=== PATIENT | male | born 1990 | race Caucasian/White ===

== ENCOUNTER → 2018-07-12 | Outpatient (CLI) | payer BC, OTHER ==
--- NOTE | 2018-07-12 18:07 | Diagnostic Imaging Report ---
INDICATION: Testicular lump and tenderness. FINDINGS: Right testicle measures 5.0 x 2.4 x 2.9 cm and the left testicle measures 4.5 x 2.5 x 3.0 cm. Both testes demonstrate homogeneous echotexture. No discrete testicular mass is seen. There is blood flow to both testes. The left epididymis does appear to be somewhat enlarged and shows some hypervascularity, suggestive of epididymitis. Trace left hydrocele is seen. IMPRESSION: 1. No evidence of testicular mass or vascular compromise. 2. Findings suggestive of left epididymitis. Dictated by: Dictated on workstation # [id number]
== END ==
LOC: RAD 14:09
PROVIDERS: ATTEND Nurse Practitioner Family
DX: N50.89 Other specified disorders of the male genital organs (principal)
CPT/HCPCS: 76870

== ENCOUNTER → 2020-06-03 | Outpatient (CLI) | payer BC ==
--- NOTE | 2020-06-03 13:20 | Diagnostic Imaging Report ---
PROCEDURE: US Scrotum. TECHNIQUE: Multiple real-time grayscale images were obtained over the scrotum in various projections bilaterally. INDICATION: Left testicular pain and lump. FINDINGS: Right testicle measures 5.0 x 2.4 x 2.9 cm and the left testicle measures 4.8 x 2.6 x 3.0 cm. Both testes demonstrate homogeneous echotexture. No discrete testicular mass is identified. There is blood flow to both testes. Right epididymis is unremarkable. Left epididymis is enlarged and shows increased vascularity, consistent with epididymitis. Small left hydrocele is present as well. No varicocele is detected. IMPRESSION: 1. No evidence of testicular mass or vascular compromise. 2. Findings suggestive of left epididymitis. Dictated by: Dictated on workstation # [id number]
== END ==
LOC: RAD 11:49
PROVIDERS: ATTEND Nurse Practitioner Family
DX: N50.9 Disorder of male genital organs, unspecified (principal)
CPT/HCPCS: 76870

== ENCOUNTER → 2020-06-12 | Outpatient (CLI) | payer BC | LOC: LABNPT 06:55 | PROVIDERS: ATTEND Family Medicine | DX: Z11.59 Encounter for screening for other viral diseases (principal); R05 Cough; R06.02 Shortness of breath; Z53.9 Procedure and treatment not carried out, unspecified reason ==

== ENCOUNTER 2020-09-19 13:29 | Outpatient (CLI) | payer BC ==
[~2020-09-19] VITALS: Ht 188 cm; Wt 109.3 kg
[2020-09-19 13:40] VITALS: BP 135/86
[2020-09-19 13:59] LABS: BASOPHILS % (AUTO) 1 % (0-10); EOSINOPHILS # (AUTO) 0.1 10^3/uL (0.0-0.3); EOSINOPHILS % (AUTO) 2 % (0-10); HEMATOCRIT 44 % (40-54); HEMOGLOBIN 15.7 g/dL (13.3-17.7); LYMPHOCYTES # (AUTO) 1.5 10^3/uL (1.0-4.0); LYMPHOCYTES % (AUTO) 27 % (12-44); MEAN CORPUSCULAR HEMOGLOBIN 31 pg (25-34); MEAN CORPUSCULAR HGB CONC 35 g/dL (32-36); MEAN CORPUSCULAR VOLUME 89 fL (80-99); MEAN PLATELET VOLUME 9.5 fL (9.0-12.2); MONOCYTES # (AUTO) 0.5 10^3/uL (0.0-1.0); MONOCYTES % (AUTO) 8 % (0-12); NEUTROPHILS # (AUTO) 3.5 10^3/uL (1.8-7.8); NEUTROPHILS % (AUTO) 63 % (42-75); PLATELET COUNT 255 10^3/uL (130-400); WHITE BLOOD COUNT 5.5 10^3/uL (4.3-11.0)
[2020-09-19 14:12] LABS: ALBUMIN 4.4 GM/DL (3.2-4.5); CHLORIDE 107 MMOL/L (98-107); POTASSIUM 3.9 MMOL/L (3.6-5.0); SODIUM 138 MMOL/L (135-145)
[2020-09-19 14:13] LABS: CALCIUM 8.9 MG/DL (8.5-10.1)
[2020-09-19 14:14] LABS: GLUCOSE 93 MG/DL (70-105); TOTAL PROTEIN 7.3 GM/DL (6.4-8.2)
[2020-09-19 14:15] LABS: CARBON DIOXIDE 25 MMOL/L (21-32)
[2020-09-19 14:16] LABS: BILIRUBIN,TOTAL 0.7 MG/DL (0.1-1.0)
[2020-09-19 14:18] LABS: ALKALINE PHOSPHATASE 61 U/L (40-136); CREATININE SERUM 0.91 MG/DL (0.60-1.30); GFR ESTIMATED > 60
[2020-09-19 14:19] LABS: BUN/CREATININE RATIO 15
[2020-09-19 14:21] LABS: ALANINE AMINOTRANSFERASE 18 U/L (0-55)
== END 2020-09-19 14:10 | disposition home or self-care (01) ==
LOC: PREOP 13:29
PROVIDERS: ATTEND Urology
DX: Z01.812 Encounter for preprocedural laboratory examination (principal); N50.9 Disorder of male genital organs, unspecified
CPT/HCPCS: 36415; 80053; 82105; 83615; 84702; 85025; 87081

== ENCOUNTER 2020-09-24 06:06 | Day surgery (SDC) | payer BC ==
[2020-09-24] VITALS (10 sets, daily range): BP systolic 108–132; BP diastolic 72–105
[~2020-09-24] VITALS: Ht 188 cm; Wt 109.3 kg
[2020-09-24] MEDS: LACTATED RINGERS 1,000 ML IV PRN ×2 (06:27→07:54)
[2020-09-24] MEDS ORDERED: ceFAZolin INJECTION 1,000 MG in WATER (STERILE) FOR INJECTION 10 ML IV ONE (06:30)
[2020-09-24] MEDS ORDERED: proPOfol 200 MG/20 ML (DIPRIVAN) VIAL IV ONE (06:48)
[2020-09-24] MEDS ORDERED: fentaNYL INJ 100 MCG/2 ML AMP ONE (06:48)
[2020-09-24] MEDS ORDERED: ONDANSETRON 4 MG/2 ML (SDV) Z0FRAN ONE (06:48)
[2020-09-24] MEDS ORDERED: LIDOCAINE PF 2% 5 ML (XYLOCAINE) VIAL ONE (06:48)
[2020-09-24] MEDS ORDERED: SEVOFLURANE (ULTANE) 15 ML INHAL SOLN ONE ×5 (06:48→08:35)
[2020-09-24] MEDS ORDERED: MIDAZOLAM 2 MG/2 ML (VERSED) VIAL ONE (06:48)
--- NOTE | 2020-09-24 07:11 | Progress Note-Pre Operative ---
Pre-Operative Progress Note H&P Reviewed The H&P was reviewed, patient examined and no changes noted. Date Seen by Provider: Sep 24, 2020 Time Seen by Provider: 07:10 Date H&P Reviewed: Sep 24, 2020 Time H&P Reviewed: 07:10 Pre-Operative Diagnosis: LT EPIDIDYMAL MASS, POSSIBLE CA PARKER VALADEZ MD Sep 24, 2020 07:11
--- NOTE | 2020-09-24 07:19 | Progress Note-Post Operative ---
Post-Operative Progess Note Surgeon (s)/Lumber Grader (s) Surgeon PARKER VALADEZ MD Lumber Grader: FATEMEH WANG D.O Pre-Operative Diagnosis LT EPIDIDYMAL MASS, POSSIBLE CA Post-Operative Diagnosis SAME Procedure & Operative Findings Date of Procedure 09/24/20 Procedure Performed/Findings LT INGUINAL EXPLORATION, LT EPIDIDYMECTOMY WITH FROZEN SECTION AND RADICAL ORCHIECTOMY Anesthesia Type GENERAL Estimated Blood Loss Estimated blood loss (mL): LESS THAN 50CC Specimens/Packing Specimens Removed LT SPERMATIC CORD, EPIDIDYMIS, AND TESTIS Packing: NONE PARKER VALADEZ MD Sep 24, 2020 07:19
--- NOTE | 2020-09-24 07:21 | Discharge Inst-Urology ---
Discharge Inst-Urology Reconcile Patient Problems Problems Reviewed?: Yes Final Diagnosis LT EPIDIDYMAL MASS Patient Instructions/Follow Up Plan/Assessment/Instructions Please make appointment to been seen in office in 2 weeks. Rest till then Showers, no bath Keep bowels soft and moving Ice to Lt groin and scrotum Increase oral fluids for 48 hours and then as needed. Diet as tolerated. If questions or concerns contact your physician Or seek help at emergency department. PARKER VALADEZ MD Sep 24, 2020 07:21
[2020-09-24] MEDS ORDERED: HYDROmorphone 2 MG/ML VIAL (DILAUDID) ONE (07:38)
[2020-09-24] MEDS ORDERED: HYDROmorphone 2 MG/ML VIAL (DILAUDID) IV ONE (09:00)
[2020-09-24] MEDS ORDERED: morphine INJ 10 MG/ML 1ML (SYR OR VIAL) IVP ONE (09:00)
[2020-09-24] MEDS ORDERED: ONDANSETRON 4 MG/2 ML (SDV) Z0FRAN IVP PRN (09:00)
[2020-09-24] MEDS ORDERED: CEPH500T PO (09:27)
[2020-09-24] MEDS ORDERED: ACHD5005 PO (09:27)
--- NOTE | 2020-09-24 11:12 | Anesthesia-General Post-Op ---
General Patient Condition Mental Status/LOC: Same as Preop Cardiovascular: Satisfactory Nausea/Vomiting: Absent Respiratory: Satisfactory Pain: Controlled Complications: Absent Post Op Complications Complications None Follow Up Care/Instructions Patient Instructions None needed. Anesthesia/Patient Condition Patient Condition Patient is doing well, no complaints, stable vital signs, no apparent adverse anesthesia problems. AYE BELLA DO Sep 24, 2020 11:12
--- NOTE | 2020-09-24 11:33 | OPERATIVE REPORT ---
DATE OF SERVICE: 09/24/2020 PREOPERATIVE DIAGNOSIS: Left epididymal mass, possible cancer. POSTOPERATIVE DIAGNOSIS: Left epididymal mass, possible cancer. OPERATIONS PERFORMED: Left inguinal exploration, left epididymectomy and radical orchiectomy. SURGEON: Holden Valadez MD. TIER OVER: Andre Marin DO. ANESTHESIA: General. COMPLICATIONS: None. DESCRIPTION OF PROCEDURE: Under satisfactory general anesthesia, the patient in supine position, abdomen, genitalia and thigh were prepped and draped in the usual sterile fashion. A left inguinal incision was made along the previous scar and carried through the skin, Solo's fascia and external oblique aponeurosis. There were extensive adhesions from previous surgery, but we were able to dissect the spermatic cord high into the internal inguinal ring. I put a Gage drain around it in order to kind of occlude the venous return. I went ahead and with sharp dissection because of the scar tissue, I was able to deliver the testicle and epididymis into the surgical wound, noted the hard mass of the head and body of the epididymis very adherent to the testicle. I went ahead and sharply dissected the whole epididymis and the head looked like either the head of the epididymis was biting severely against the testicle or even infiltrating it, so I went ahead and resected the edge of the testicle that is in question. I sent the epididymis to pathology for frozen section. I went ahead and closed the tunica albuginea with a running 3-0 chromic catgut and hemostasis was complete. We waited for the pathology report. highly suspect a cancerous process with possible cancer cells in the tissue of the testicle that was resected with the epididymis, so we proceeded with the radical orchiectomy. I went ahead and the cord at the internal ring and tied it in two places with 0 chromic catgut. Then, severed the gubernaculum attachment and tied it with 0 chromic catgut. The specimen was sent for final pathology. Hemostasis was complete. Closure was performed in layer, the external oblique with running 2-0 Vicryl, the Solo's fascia with interrupted 3-0 Vicryl and the skin with a running subcuticular 4-0 Vicryl. Glue was applied. Estimated blood loss was less than 50 mL, none of which was replaced. Needle, sponge, and instrument counts were correct x2. Dressing was applied. The patient tolerated the procedure and anesthesia well and was sent to recovery room in a stable condition. Just to mention that his preoperative tumor markers, namely alpha fetoprotein and beta hCG and LAD were normal. PLAN: We will await the final report and if it was indeed a cancer, depending on the type, we will also order a CT chest, abdomen and pelvis and a bone scan for staging. This was fully explained to the mother postoperatively. Job ID: [id number] DocumentID: [id number] Dictated Date: 09/24/2020 09:04:57 Stunt Woman Date: 09/24/2020 11:32:44 Dictated By: HOLDEN VALADEZ MD
== END 2020-09-24 11:20 | disposition home or self-care (01) ==
LOC: SDC 06:06
PROVIDERS: ATTEND Urology
DX: C85.19 Unspecified B-cell lymphoma, extranodal and solid organ sites (principal)

== ENCOUNTER → 2020-10-13 | Outpatient (CLI) | payer BC ==
[~2020-10-13] MED LIST: ACHD5005 PO; CATHETER FLUSH 10 ML SYR IV PRN; CEPH500T PO; HOLD METFORMIN - RECEIVED CONTRAST 20 ML VIAL IV SCH; IOHEXOL 350 MG/ML 100 ML (OMNIPAQUE 350) VIAL IV ONE; NS 100 ML (IVPB) BAG IV ONE
--- NOTE | 2020-10-13 13:46 | Diagnostic Imaging Report ---
PROCEDURE: CT chest, abdomen, and pelvis with contrast. TECHNIQUE: Multiple contiguous axial images were obtained through the chest, abdomen, and pelvis after the administration of intravenous contrast. Auto Exposure Controls were utilized during the CT exam to meet ALARA standards for radiation dose reduction. INDICATION: B-cell lymphoma. No prior studies are available for comparison. CT CHEST: No axillary lymphadenopathy is identified. There appears to be some residual thymic tissue in anterior mediastinum. No definite mediastinal or hilar lymphadenopathy is identified. No pericardial or pleural fluid is identified. Lungs are clear. No infiltrates are seen. There is no nodule or mass. IMPRESSION: Unremarkable CT of the chest. No thoracic lymphadenopathy is detected. CT abdomen and pelvis: Tiny low-density left lobe of liver is noted measuring 6 mm. This is too small to characterize. No other liver lesions are seen. Gallbladder is unremarkable. The pancreas and spleen are unremarkable. No adrenal mass is detected. Kidneys are unremarkable. Aorta is nonaneurysmal. No central retroperitoneal or mesenteric lymphadenopathy is identified. Small and large bowel loops are normal caliber. There is no ascites. Bladder and prostate are unremarkable. No definite pelvic lymphadenopathy is identified. Bony structures are unremarkable. IMPRESSION: 1. No evidence of abdominal or pelvic lymphadenopathy. No acute feature is detected. Dictated by: Dictated on workstation # [id number]
== END ==
LOC: RAD 08:45
PROVIDERS: ATTEND Urology
DX: C83.30 Diffuse large B-cell lymphoma, unspecified site (principal)
CPT/HCPCS: 71260; 74177

== ENCOUNTER → 2020-10-21 | Outpatient (CLI) | payer BC ==
[~2020-10-21] MED LIST changes: -CATHETER FLUSH 10 ML SYR IV PRN; -HOLD METFORMIN - RECEIVED CONTRAST 20 ML VIAL IV SCH; -IOHEXOL 350 MG/ML 100 ML (OMNIPAQUE 350) VIAL IV ONE; -NS 100 ML (IVPB) BAG IV ONE
--- NOTE | 2020-10-21 17:00 | Diagnostic Imaging Report ---
INDICATION: B-cell lymphoma. Orchiectomy. 25.3 mCi tech 99 MDP was given. Whole body imaging was performed for 2-1/2 [address]injection. Comparison with CT chest, abdomen and pelvis of 10/13/2020. FINDINGS: There is good uptake throughout the skeletal system. There are no focal abnormal areas of uptake demonstrated to suggest metastatic disease. IMPRESSION: Normal whole body bone scan. Dictated by: Dictated on workstation # [id number]
== END ==
LOC: CARD 12:00
PROVIDERS: ATTEND Urology
DX: C85.10 Unspecified B-cell lymphoma, unspecified site (principal); Z90.79 Acquired absence of other genital organ(s)
CPT/HCPCS: 78306; A9503

== ENCOUNTER 2020-10-29 12:49 | Outpatient (CLI) | payer BC ==
[~2020-10-29] VITALS: Ht 188 cm; Wt 108.6 kg
== END 2020-10-29 15:06 | disposition home or self-care (01) ==
LOC: PREOP 12:49
PROVIDERS: ATTEND Surgery
DX: Z01.818 Encounter for other preprocedural examination (principal)

== ENCOUNTER 2020-10-30 09:53 | Day surgery (SDC) | payer BC ==
[~2020-10-30] VITALS: Ht 188 cm; Wt 108.6 kg
[2020-10-30] VITALS (7 sets, daily range): BP systolic 110–124; BP diastolic 61–92
[2020-10-30] MEDS ORDERED: ceFAZolin 2 GM IV Premixed 50 ML IV ONE (10:15)
[2020-10-30] MEDS ORDERED: LIDOCAINE/EPI 1%-1:100,000 (XYLOCAINE) 20ML ONE (10:50)
[2020-10-30] MEDS ORDERED: HEParin (CENTRAL IV FLUSH) 500 UNIT/5 ML SYR ONE (10:50)
[2020-10-30] MEDS ORDERED: 0.9% SODIUM CHLORIDE PF INJ 20 ML VIAL ONE (10:50)
[2020-10-30] MEDS ORDERED: PROPOFOL INJECTION 50 ML IV ONE (10:56)
[2020-10-30] MEDS ORDERED: MIDAZOLAM 2 MG/2 ML (VERSED) VIAL ONE (10:56)
[2020-10-30] MEDS ORDERED: fentaNYL INJ 100 MCG/2 ML AMP ONE (10:56)
--- NOTE | 2020-10-30 11:36 | Progress Note-Pre Operative ---
Pre-Operative Progress Note H&P Reviewed The H&P was reviewed, patient examined and no changes noted. Date Seen by Provider: October 30, 2020 Time Seen by Provider: 11:36 Date H&P Reviewed: October 30, 2020 Time H&P Reviewed: 11:36 Pre-Operative Diagnosis: non-hodgkins lymphoma FATEMEH WANG DO October 30, 2020 11:36
--- NOTE | 2020-10-30 12:38 | Progress Note-Post Operative ---
Post-Operative Progess Note Surgeon (s)/Application Support Developer (s) Surgeon FATEMEH WANG DO Application Support Developer: na Pre-Operative Diagnosis non-hodgkins lymphoma Post-Operative Diagnosis same Procedure & Operative Findings Date of Procedure 10/30/20 Procedure Performed/Findings PROCEDURE: Right internal jugular port placement using ultrasound guidance. COMPLICATIONS: None. INDICATIONS: The patient is a 30 year old male needing port. Patient understands the risks and benefits of port placement and wished to proceed with the procedure. Consent was signed on the chart. PROCEDURE: The patient was taken to the operating suite, was prepped and draped in the sterile fashion. A surgical pause was performed. Ultrasound was used to locate the internal jugular vein. Once located anesthetic was infiltrated above it. Using micro-access kit, the right internal vein was accessed. Dark nonpulsatile blood was withdrawn. The wire was inserted. Fluoroscopy assured proper placement. The needle was removed. The micro-access dilator was advanced over the wire and the wire was removed. The regular wire was inserted and fluoroscopy assured proper placement. The wire was then secured. Local anesthetic was used to anesthetize from the neck for tunneling down to the right chest and for pocket creation. A 15 blade scalpel was used to make an incision over the right chest. Cautery was used to dissect down to the pectoral fascia. A pocket was created with blunt dissection. The dilator sheath was then advanced over the wire under fluoroscopy and the dilator and wire were removed. The Groshong catheter was inserted through the sheath and the sheath was then removed. The Groshong wire was removed. The catheter was then tunneled to the right chest pocket. Fluoroscopy was used to cut to length and this was then attached to the port which was then placed within the pocket. The port was then accessed without difficulty. It was then flushed with saline and then heparin. The subcutaneous tissues were then reapproximated using 3-0 Vicryl. The areas were then washed and dried. Skin Affix was placed over incision. The insertion point of the neck Skin Affix was placed over the incision. The patient tolerated the procedure well without complication and was taken to recovery room in stable condition. Chest x-ray is pending. Anesthesia Type mac c local Estimated Blood Loss Estimated blood loss (mL): min Specimens/Packing Specimens Removed FATEMEH Teixeira DO October 30, 2020 12:38
--- NOTE | 2020-10-30 12:40 | Anesthesia-General Post-Op ---
MAC Patient Condition Mental Status/LOC: Same as Preop Cardiovascular: Satisfactory Nausea/Vomiting: Absent Respiratory: Satisfactory Pain: Controlled Complications: Absent Post Op Complications Complications None Follow Up Care/Instructions Patient Instructions None needed. Anesthesiology Discharge Order Discharge Order Patient is doing well, no complaints, stable vital signs, no apparent adverse anesthesia problems. No complications reported per nursing. LEXI NGUYỄN CRNA October 30, 2020 12:40
--- NOTE | 2020-10-30 12:40 | Discharge Inst-Simple/Standard ---
Discharge Inst-Standard Patient Instructions/Follow Up Plan of Care/Instructions/FU: 2 weeks Tania Activity as Tolerated: No Discharge Diet: Regular Diet Other Inst to Patient Follow up Appt: Make appointment for 2 week. Instructions: No lifting greater than 10 pounds. No strenuous activity. May shower in 24 hours, no tub bath or soaking. Use incentive spirometer at home as directed. No Smoking Skin/Wound Care: You have special glue over your incision that will fall off on it's own. Ice pack on 15 min and off 30 min, repeat to decrease swelling and discomfort. Symptoms to Report: Appetite Changes, Extremity Discoloration, Numbness/Tingling, Swelling Increased, Bleeding Excessive, Eyesight Changes, Pain Increased, Urine Color Change, Constipation(Persistent), Fever over 101 degree F, Pain/Pressure in chest, Urinating Difficulty, Cough Up/Vomit Blood, Heart Beat Irreg/Pounding, Pain/Pressure in jaw, Vaginal Bleeding Increase, Cramps in feet or legs, Lightheadedness, Pain/Pressure in shoulder, Diarrhea(Persistent), Memory Changes Suddenly, Questions/Concerns, Weight gain consecutive days, Dizziness/Fainting, Nausea/Vomiting, Shortness of Breath, Weight gain over 2 pounds If questions or concerns contact your physician Or seek help at emergency department. FATEMEH WANG DO October 30, 2020 12:40
[2020-10-30] MEDS ORDERED: morphine INJ 10 MG/ML 1ML (SYR OR VIAL) IVP ONE (12:45)
[2020-10-30] MEDS ORDERED: MEPERIDINE (DEMEROL) INJ 50 MG/ML IVP ONE (12:45)
[2020-10-30] MEDS ORDERED: ONDANSETRON 4 MG/2 ML (SDV) Z0FRAN IVP PRN (12:45)
--- NOTE | 2020-10-30 13:06 | Diagnostic Imaging Report ---
INDICATION: Central line placement IMPRESSION: 30 seconds of fluoroscopy and AP digital images were used in surgery by Dr. Marin during right IJ Port-A-Cath placement. Dictated by: Dictated on workstation # [id number]
--- NOTE | 2020-10-30 13:19 | Diagnostic Imaging Report ---
INDICATION: Central line placement. EXAMINATION: Portable chest at 12:50 p.m. FINDINGS: Right IJ Port-A-Cath tip projects over the SVC. Heart size and pulmonary vascularity are normal. Lungs are clear. There are no effusions or pneumothoraces. IMPRESSION: No acute abnormalities in the chest. Dictated by: Dictated on workstation # [id number]
== END 2020-10-30 13:40 | disposition home or self-care (01) ==
LOC: SDC 09:53
PROVIDERS: ATTEND Surgery
DX: C83.30 Diffuse large B-cell lymphoma, unspecified site (principal); Z87.891 Personal history of nicotine dependence; Z79.899 Other long term (current) drug therapy; Z90.79 Acquired absence of other genital organ(s); Z82.49 Family history of ischemic heart disease and other diseases of the circulatory system; Z80.9 Family history of malignant neoplasm, unspecified
CPT/HCPCS: 71045; 76000; 87081

== ENCOUNTER → 2020-11-04 | Outpatient (CLI) | payer BC ==
--- NOTE | 2020-11-04 14:46 | Diagnostic Imaging Report ---
INDICATION: Diffuse large B-cell lymphoma. Study is performed for initial staging. Serum blood glucose level at the time of injection was 80 mg/dL. Patient was administered 15.4 mCi F-18 FDG intravenously in the left antecubital location and PET imaging was performed from the top of the skull to mid thighs. Noncontrast CT was also performed for attenuation correction and anatomic correlation. No prior PET/CT studies are available for comparison. Comparison is made with conventional CT chest, abdomen and pelvis study from 10/13/2020. There is symmetric activity throughout the brain. Physiologic activity in the oropharynx is identified. There is a hypermetabolic mass in the region of the lower pole left lobe of the thyroid with an SUV max of 18. Dedicated thyroid ultrasound is recommended. No definite mediastinal or hilar hypermetabolism is identified. No pulmonary parenchymal hypermetabolism is identified. There is physiologic activity throughout the gastrointestinal and genitourinary tracts of abdomen and pelvis. There is some uptake in the region of the left inguinal canal which could be postsurgical. SUV values are approximately 4.8. IMPRESSION: 1. Hypermetabolic mass in the left thyroid. Dedicated thyroid ultrasound is recommended for further evaluation. 2. Probable postsurgical changes in the left groin and inguinal canal. No other significant abnormality is detected. Dictated by: Dictated on workstation # [id number]
== END ==
LOC: CARD 09:51
PROVIDERS: ATTEND Internal Medicine Hematology & Oncology
DX: Z51.11 Encounter for antineoplastic chemotherapy (principal); C83.30 Diffuse large B-cell lymphoma, unspecified site; C85.90 Non-Hodgkin lymphoma, unspecified, unspecified site; E07.89 Other specified disorders of thyroid
CPT/HCPCS: 78815; 93306; A9552

== ENCOUNTER → 2020-11-07 | Outpatient (CLI) | payer BC ==
--- NOTE | 2020-11-07 13:32 | Diagnostic Imaging Report ---
PROCEDURE: US Thyroid. TECHNIQUE: Multiple real-time grayscale images were obtained of the thyroid in various projections. INDICATION: Lymphoma. Patient had abnormal PET/CT study. COMPARISON: Correlation is made with PET/CT study from 11/04/2020. FINDINGS: Right lobe of thyroid measures 4.2 x 1.4 x 1.7 cm and left lobe measures 4.3 x 1.5 x 1.7 cm. Isthmus is 3 mm in thickness. Left lobe of thyroid does contain a circumscribed isoechoic mass mid to lower pole left lobe measuring 1.3 x 1.2 x 1.1 cm. No microcalcifications are seen. No other masses are identified. IMPRESSION: Solid left lobe thyroid nodule, likely accounting for the PET abnormality. Close interval follow-up with repeat ultrasound in six months recommended to show continued stability. Dictated by: Dictated on workstation # [id number]
== END ==
LOC: RAD 12:17
PROVIDERS: ATTEND Nurse Practitioner Adult Health
DX: C73 Malignant neoplasm of thyroid gland (principal); E04.1 Nontoxic single thyroid nodule
CPT/HCPCS: 76536

== ENCOUNTER → 2021-01-26 | Outpatient (RCR) | payer BC ==
[2020-10-28 09:42] LABS: BASOPHILS % (AUTO) 0 % (0-10); EOSINOPHILS # (AUTO) 0.2 10^3/uL (0.0-0.3); EOSINOPHILS % (AUTO) 3 % (0-10); HEMATOCRIT 45 % (40-54); HEMOGLOBIN 15.5 g/dL (13.3-17.7); LYMPHOCYTES # (AUTO) 1.4 10^3/uL (1.0-4.0); LYMPHOCYTES % (AUTO) 28 % (12-44); MEAN CORPUSCULAR HEMOGLOBIN 31 pg (25-34); MEAN CORPUSCULAR HGB CONC 35 g/dL (32-36); MEAN CORPUSCULAR VOLUME 91 fL (80-99); MEAN PLATELET VOLUME 9.4 fL (9.0-12.2); MONOCYTES # (AUTO) 0.6 10^3/uL (0.0-1.0); MONOCYTES % (AUTO) 11 % (0-12); NEUTROPHILS # (AUTO) 2.8 10^3/uL (1.8-7.8); NEUTROPHILS % (AUTO) 57 % (42-75); PLATELET COUNT 230 10^3/uL (130-400); WHITE BLOOD COUNT 4.9 10^3/uL (4.3-11.0)
[2020-10-28 10:15] LABS: ALANINE AMINOTRANSFERASE 18 U/L (0-55); ALBUMIN 4.2 GM/DL (3.2-4.5); ALKALINE PHOSPHATASE 71 U/L (40-136); BUN/CREATININE RATIO 14; CALCIUM 8.9 MG/DL (8.5-10.1); CARBON DIOXIDE 30 MMOL/L (21-32); CHLORIDE 106 MMOL/L (98-107); CREATININE SERUM 0.86 MG/DL (0.60-1.30); GFR ESTIMATED > 60; GLUCOSE 78 MG/DL (70-105); POTASSIUM 3.9 MMOL/L (3.6-5.0); SODIUM 140 MMOL/L (135-145)
[2020-10-29 13:31] LABS: HEPATITIS C ANTIBODY C Non-Reactive (Non-Reactive)
--- NOTE | 2020-11-12 11:00 | Anesthesia-Procedure Note ---
Procedures/Interventions Procedure Start/Stop/Diagnosis Date of Procedure: November 12, 2020 Start Time: 10:25 Referring Physician: Dr Morfin Preprocedural Diagnosis: Nonhodgkin Lymphoma Brief History Called to cancer center for a lumbar puncture for intrathecal methotrexate Dx: nonhodkins lymphoma. Stop Time: 10:40 Postprocedural Diagnosis: Same Lumbar Puncture Discussed Risk,Benefits: Yes Patient Consents: Yes Position: L3-4, Sitting Sterile Technique: Yes (ChloraPrep) Opening Pressure: N/A Fluid Color: Clear Spinal Needle Used: 22g Galeano 3 1/2 inch Procedure Notes D/W patient risks of lumbar puncture, including most commonly bleeding, infection and PDPH. He understood the risks and consent was signed. Plt count was checked and within normal limits. + CSF on first pass. Neg heme /paresthesias. Approximately 8 ml of CSF was sent to lab per Dr Morfin's orders. Dr Morfin injected the methotrexate intrathecally and needle was withdrawn. Sterile bandage applied. Pt tolerated the procedure well. We discussed the symptoms of a PDPH and increased fluids/caffeine for symptomatic treatment. He will call with any questions/concerns. The plan is for weekly treatments for the next 5 weeks. AYE BELLA DO November 12, 2020 11:00
[2020-11-12 11:24] LABS: CSF GLUCOSE 59 MG/DL (50-80)
[2020-11-12 11:30] LABS: CSF TOTAL PROTEIN 37 MG/DL (15-40)
[2020-11-12 12:45] LABS: APPEARANCE,CSF CLEAR; COLOR,CSF COLORLESS; RED BLOOD CELL,CSF 1 CELLS (0-0); WHITE BLOOD CELL,CSF 1 CELLS (0-5)
[2020-11-12 12:46] LABS: CSF TUBE NUMBER 2
[2020-11-19 10:25] LABS: BASOPHILS % (AUTO) 1 % (0-10); EOSINOPHILS # (AUTO) 0.2 10^3/uL (0.0-0.3); EOSINOPHILS % (AUTO) 3 % (0-10); HEMATOCRIT 42 % (40-54); HEMOGLOBIN 14.8 g/dL (13.3-17.7); LYMPHOCYTES # (AUTO) 0.9 10^3/uL (1.0-4.0); LYMPHOCYTES % (AUTO) 18 % (12-44); MEAN CORPUSCULAR HEMOGLOBIN 31 pg (25-34); MEAN CORPUSCULAR HGB CONC 36 g/dL (32-36); MEAN CORPUSCULAR VOLUME 88 fL (80-99); MEAN PLATELET VOLUME 9.2 fL (9.0-12.2); MONOCYTES # (AUTO) 0.1 10^3/uL (0.0-1.0); MONOCYTES % (AUTO) 3 % (0-12); NEUTROPHILS # (AUTO) 3.9 10^3/uL (1.8-7.8); NEUTROPHILS % (AUTO) 74 % (42-75); PLATELET COUNT 210 10^3/uL (130-400); WHITE BLOOD COUNT 5.2 10^3/uL (4.3-11.0)
[2020-11-19 10:43] LABS: BUN/CREATININE RATIO 16; CALCIUM 8.7 MG/DL (8.5-10.1); CARBON DIOXIDE 31 MMOL/L (21-32); CHLORIDE 103 MMOL/L (98-107); CREATININE SERUM 0.83 MG/DL (0.60-1.30); GFR ESTIMATED > 60; GLUCOSE 86 MG/DL (70-105); POTASSIUM 3.8 MMOL/L (3.6-5.0); SODIUM 139 MMOL/L (135-145)
--- NOTE | 2020-11-19 11:32 | Anesthesia-Procedure Note ---
Procedures/Interventions Procedure Start/Stop/Diagnosis Date of Procedure: November 19, 2020 Start Time: 11:00 Referring Physician: Dr Morfin Preprocedural Diagnosis: Diffuse Large B-Cell Lymphoma Brief History Called to cancer center for a lumbar puncture to administer intrathecal methotrexate. Pt had no complications with lumbar puncture and methotrexate last week. Questions answered and consent signed. + CSF after needle redirect times one. Symptoms of PDPH discussed with patient and he will call with any questions/concerns. Stop Time: 11:18 Postprocedural Diagnosis: Same Lumbar Puncture Discussed Risk,Benefits: Yes Patient Consents: Yes Position: Sitting Sterile Technique: Yes (ChloraPrep) Opening Pressure: N/A Fluid Color: Clear Spinal Needle Used: 22g RAZ Mobile 3 1/2 inch Procedure Notes No difficulty -- ~ 5 mL CSF remove per Dr Morfin's request and methotrexate injected by him with sterile technique. Sterile bandage applied after needle was withdrawn. Pt tolerated the procedure well. He did get light-headed at the start of the procedure. Withdrew needle and waited a few minutes. No trouble after that. AYE BELLA DO November 19, 2020 11:32
[2020-11-26 10:17] LABS: BASOPHILS % (AUTO) 2 % (0-10); EOSINOPHILS # (AUTO) 0.1 10^3/uL (0.0-0.3); EOSINOPHILS % (AUTO) 5 % (0-10); HEMATOCRIT 38 % (40-54); HEMOGLOBIN 13.8 g/dL (13.3-17.7); LYMPHOCYTES # (AUTO) 1.1 10^3/uL (1.0-4.0); LYMPHOCYTES % (AUTO) 47 % (12-44); MEAN CORPUSCULAR HEMOGLOBIN 32 pg (25-34); MEAN CORPUSCULAR HGB CONC 36 g/dL (32-36); MEAN CORPUSCULAR VOLUME 88 fL (80-99); MEAN PLATELET VOLUME 8.9 fL (9.0-12.2); MONOCYTES # (AUTO) 0.4 10^3/uL (0.0-1.0); MONOCYTES % (AUTO) 17 % (0-12); NEUTROPHILS # (AUTO) 0.7 10^3/uL (1.8-7.8); NEUTROPHILS % (AUTO) 29 % (42-75); PLATELET COUNT 161 10^3/uL (130-400); WHITE BLOOD COUNT 2.4 10^3/uL (4.3-11.0)
[2020-11-26 10:35] LABS: BUN/CREATININE RATIO 9; CARBON DIOXIDE 27 MMOL/L (21-32); CHLORIDE 106 MMOL/L (98-107); CREATININE SERUM 0.78 MG/DL (0.60-1.30); GFR ESTIMATED > 60; GLUCOSE 88 MG/DL (70-105); POTASSIUM 3.5 MMOL/L (3.6-5.0); SODIUM 141 MMOL/L (135-145)
--- NOTE | 2020-11-26 15:40 | Anesthesia-Procedure Note ---
Procedures/Interventions Procedure Start/Stop/Diagnosis Date of Procedure: Nov 26, 2020 Start Time: 11:30 Referring Physician: Dr Morfin Preprocedural Diagnosis: Diffuse Large B-Cell Lymphoma Brief History Called to cancer center for 3rd of 6 intrathecal methotrexate injection. Stop Time: 11:40 Postprocedural Diagnosis: Same Lumbar Puncture Discussed Risk,Benefits: Yes Patient Consents: Yes Position: Sitting Sterile Technique: Yes Opening Pressure: N/A Fluid Color: Clear Spinal Needle Used: 22g Galeano 3 1/2 inch Procedure Notes See above for block details. + CSF and ~5 mL of CSF withdrawn per Dr Morfin. Injection of intrathecal methotrexate by Dr. Morfin. Sterile bandage applied after the needle was withdrawn. Pt tolerated the procedure well. AYE BELLA DO Nov 26, 2020 15:40
[2020-12-03 09:40] LABS: BASOPHILS % (AUTO) 1 % (0-10); EOSINOPHILS % (AUTO) 1 % (0-10); HEMATOCRIT 42 % (40-54); HEMOGLOBIN 14.9 g/dL (13.3-17.7); LYMPHOCYTES # (AUTO) 1.2 10^3/uL (1.0-4.0); LYMPHOCYTES % (AUTO) 36 % (12-44); MEAN CORPUSCULAR HEMOGLOBIN 32 pg (25-34); MEAN CORPUSCULAR HGB CONC 36 g/dL (32-36); MEAN CORPUSCULAR VOLUME 89 fL (80-99); MEAN PLATELET VOLUME 8.9 fL (9.0-12.2); MONOCYTES # (AUTO) 0.5 10^3/uL (0.0-1.0); MONOCYTES % (AUTO) 13 % (0-12); NEUTROPHILS # (AUTO) 1.6 10^3/uL (1.8-7.8); NEUTROPHILS % (AUTO) 48 % (42-75); PLATELET COUNT 268 10^3/uL (130-400); WHITE BLOOD COUNT 3.4 10^3/uL (4.3-11.0)
[2020-12-03 10:09] LABS: ALANINE AMINOTRANSFERASE 88 U/L (0-55); ALBUMIN 4.1 GM/DL (3.2-4.5); ALKALINE PHOSPHATASE 60 U/L (40-136); BILIRUBIN,TOTAL 0.5 MG/DL (0.1-1.0); BUN/CREATININE RATIO 13; CALCIUM 9.3 MG/DL (8.5-10.1); CARBON DIOXIDE 26 MMOL/L (21-32); CHLORIDE 105 MMOL/L (98-107); CREATININE SERUM 0.79 MG/DL (0.60-1.30); GFR ESTIMATED > 60; GLUCOSE 89 MG/DL (70-105); POTASSIUM 3.7 MMOL/L (3.6-5.0); SODIUM 140 MMOL/L (135-145); TOTAL PROTEIN 6.6 GM/DL (6.4-8.2)
--- NOTE | 2020-12-03 13:38 | Anesthesia-Procedure Note ---
Procedures/Interventions Procedure Start/Stop/Diagnosis Date of Procedure: Dec 03, 2020 Start Time: 13:15 Referring Physician: Dr Morfin Preprocedural Diagnosis: Diffuse Large B-Cell Lymphoma Brief History Called to the cancer center for the 4th of 6 intrathecal methotrexate injections. Stop Time: 13:25 Postprocedural Diagnosis: Same Lumbar Puncture Discussed Risk,Benefits: Yes Patient Consents: Yes Position: L3-4, Sitting Sterile Technique: Yes (ChloraPrep) Opening Pressure: N/A Fluid Color: Clear Spinal Needle Used: 22g Galeano 3 1/2 inch Procedure Notes See above for lumbar puncture details. + CSF on first pass without difficulty. ~5 mL CSF removed and intrathecal methotrexate injected by Dr Morfin. Sterile bandage applied after needle removed. Pt tolerated the procedure well. Will plan for 5th injection next Tuesday. AYE BELLA DO Dec 03, 2020 13:38
[2020-12-10 10:03] LABS: BASOPHILS # (AUTO) 0.1 10^3/uL (0.0-0.1); BASOPHILS % (AUTO) 1 % (0-10); EOSINOPHILS # (AUTO) 0.1 10^3/uL (0.0-0.3); EOSINOPHILS % (AUTO) 2 % (0-10); HEMATOCRIT 43 % (40-54); HEMOGLOBIN 14.9 g/dL (13.3-17.7); LYMPHOCYTES # (AUTO) 1.3 10^3/uL (1.0-4.0); LYMPHOCYTES % (AUTO) 19 % (12-44); MEAN CORPUSCULAR HEMOGLOBIN 31 pg (25-34); MEAN CORPUSCULAR HGB CONC 35 g/dL (32-36); MEAN CORPUSCULAR VOLUME 90 fL (80-99); MEAN PLATELET VOLUME 9.3 fL (9.0-12.2); MONOCYTES # (AUTO) 0.5 10^3/uL (0.0-1.0); MONOCYTES % (AUTO) 8 % (0-12); NEUTROPHILS # (AUTO) 4.5 10^3/uL (1.8-7.8); NEUTROPHILS % (AUTO) 68 % (42-75); PLATELET COUNT 243 10^3/uL (130-400); WHITE BLOOD COUNT 6.7 10^3/uL (4.3-11.0)
[2020-12-10 10:26] LABS: BUN/CREATININE RATIO 16; CALCIUM 9.5 MG/DL (8.5-10.1); CARBON DIOXIDE 31 MMOL/L (21-32); CHLORIDE 100 MMOL/L (98-107); CREATININE SERUM 0.75 MG/DL (0.60-1.30); GFR ESTIMATED > 60; GLUCOSE 90 MG/DL (70-105); POTASSIUM 3.5 MMOL/L (3.6-5.0); SODIUM 139 MMOL/L (135-145)
--- NOTE | 2020-12-10 10:40 | Anesthesia-Procedure Note ---
Procedures/Interventions Procedure Start/Stop/Diagnosis Date of Procedure: Dec 10, 2020 Start Time: 10:15 Referring Physician: Dr Morfin Preprocedural Diagnosis: Diffuse Large B-Cell Lymphoma Brief History Called to the [facility] for a lumbar puncture for the 5th of 6 intracthecal methotrexate injections. Patient continues to do well after the injections, with the only complaint of a mild, non-specific headache which is relieved by OTC medications and avoiding strenuous activities. Stop Time: 10:25 Postprocedural Diagnosis: Same Lumbar Puncture Discussed Risk,Benefits: Yes Patient Consents: Yes Position: L3-4, Sitting Sterile Technique: Yes (ChloraPrep) Opening Pressure: N/A Fluid Color: Clear Spinal Needle Used: 22g SCIenergy 3 1/2 inch Procedure Notes See above for lumbar puncture details -- + CSF on 1st pass without difficulty. Neg heme/paresthesias. ~4 mL of CSF removed and intrathecal methotrexate was injected by Dr Morfin. Needle was removed and a sterile bandage was applied. Pt tolerated the procedure well. We will plan for the final injection next Tuesday. Patient was instructed to call with any questions/concerns. AYE BELLA DO Dec 10, 2020 10:40
[2020-12-17 10:08] LABS: BASOPHILS # (AUTO) 0.1 10^3/uL (0.0-0.1); BASOPHILS % (AUTO) 1 % (0-10); EOSINOPHILS # (AUTO) 0.2 10^3/uL (0.0-0.3); EOSINOPHILS % (AUTO) 3 % (0-10); HEMATOCRIT 42 % (40-54); HEMOGLOBIN 14.8 g/dL (13.3-17.7); LYMPHOCYTES # (AUTO) 1.5 10^3/uL (1.0-4.0); LYMPHOCYTES % (AUTO) 22 % (12-44); MEAN CORPUSCULAR HEMOGLOBIN 32 pg (25-34); MEAN CORPUSCULAR HGB CONC 35 g/dL (32-36); MEAN CORPUSCULAR VOLUME 90 fL (80-99); MEAN PLATELET VOLUME 9.1 fL (9.0-12.2); MONOCYTES # (AUTO) 0.9 10^3/uL (0.0-1.0); MONOCYTES % (AUTO) 13 % (0-12); NEUTROPHILS # (AUTO) 3.7 10^3/uL (1.8-7.8); NEUTROPHILS % (AUTO) 54 % (42-75); PLATELET COUNT 201 10^3/uL (130-400); WHITE BLOOD COUNT 6.9 10^3/uL (4.3-11.0)
[2020-12-17 10:28] LABS: BUN/CREATININE RATIO 15; CALCIUM 9.4 MG/DL (8.5-10.1); CARBON DIOXIDE 27 MMOL/L (21-32); CHLORIDE 103 MMOL/L (98-107); CREATININE SERUM 0.86 MG/DL (0.60-1.30); GFR ESTIMATED > 60; GLUCOSE 73 MG/DL (70-105); SODIUM 139 MMOL/L (135-145)
--- NOTE | 2020-12-17 13:16 | Anesthesia-Procedure Note ---
Procedures/Interventions Procedure Start/Stop/Diagnosis Date of Procedure: Dec 17, 2020 Start Time: 10:58 Referring Physician: Dr Morfin Preprocedural Diagnosis: Diffuse Large B-Cell Lymphoma Brief History Called to the cancer center for the final intrathecal methotrexate injection. Pt has done well with the previous injections, and has no questions regarding the procedure. Stop Time: 11:15 Postprocedural Diagnosis: Same Lumbar Puncture Discussed Risk,Benefits: Yes Patient Consents: Yes Position: L3-4, Sitting Sterile Technique: Yes (ChloraPrep) Opening Pressure: N/A Fluid Color: Clear Spinal Needle Used: 22g Blinkit 3 1/2 inch Procedure Notes See above for lumbar puncture details. Brief transient paresthesia on the left but went away immediately with needle withdrawal. + clear CSF without difficulty. ~4 mL of CSF withdrawn per Dr Morfin's request. Intrathecal Methotrexate injection done by Dr Morfin. Needle withdrawn and sterile bandage applied. Pt tolerated the procedure well. He said he will call with any questions or concerns. AYE BELLA DO Dec 17, 2020 13:16
[2020-12-24 10:04] LABS: BASOPHILS # (AUTO) 0.1 10^3/uL (0.0-0.1); BASOPHILS % (AUTO) 1 % (0-10); EOSINOPHILS # (AUTO) 0.1 10^3/uL (0.0-0.3); EOSINOPHILS % (AUTO) 1 % (0-10); HEMATOCRIT 39 % (40-54); HEMOGLOBIN 13.7 g/dL (13.3-17.7); LYMPHOCYTES # (AUTO) 0.9 10^3/uL (1.0-4.0); LYMPHOCYTES % (AUTO) 18 % (12-44); MEAN CORPUSCULAR HEMOGLOBIN 32 pg (25-34); MEAN CORPUSCULAR HGB CONC 36 g/dL (32-36); MEAN CORPUSCULAR VOLUME 90 fL (80-99); MEAN PLATELET VOLUME 9.2 fL (9.0-12.2); MONOCYTES # (AUTO) 0.8 10^3/uL (0.0-1.0); MONOCYTES % (AUTO) 15 % (0-12); NEUTROPHILS # (AUTO) 3.2 10^3/uL (1.8-7.8); NEUTROPHILS % (AUTO) 63 % (42-75); PLATELET COUNT 214 10^3/uL (130-400); WHITE BLOOD COUNT 5.1 10^3/uL (4.3-11.0)
[2020-12-24 10:23] LABS: ALANINE AMINOTRANSFERASE 36 U/L (0-55); ALBUMIN 4.1 GM/DL (3.2-4.5); ALKALINE PHOSPHATASE 58 U/L (40-136); BILIRUBIN,TOTAL 0.5 MG/DL (0.1-1.0); BUN/CREATININE RATIO 19; CALCIUM 8.9 MG/DL (8.5-10.1); CARBON DIOXIDE 25 MMOL/L (21-32); CHLORIDE 109 MMOL/L (98-107); CREATININE SERUM 0.78 MG/DL (0.60-1.30); GFR ESTIMATED > 60; GLUCOSE 91 MG/DL (70-105); POTASSIUM 3.9 MMOL/L (3.6-5.0); SODIUM 141 MMOL/L (135-145); TOTAL PROTEIN 6.3 GM/DL (6.4-8.2)
[2020-12-31 10:33] LABS: BASOPHILS # (AUTO) 0.1 10^3/uL (0.0-0.1); BASOPHILS % (AUTO) 1 % (0-10); EOSINOPHILS # (AUTO) 0.2 10^3/uL (0.0-0.3); EOSINOPHILS % (AUTO) 2 % (0-10); HEMATOCRIT 38 % (40-54); HEMOGLOBIN 13.1 g/dL (13.3-17.7); LYMPHOCYTES # (AUTO) 1.5 10^3/uL (1.0-4.0); LYMPHOCYTES % (AUTO) 20 % (12-44); MEAN CORPUSCULAR HEMOGLOBIN 32 pg (25-34); MEAN CORPUSCULAR HGB CONC 35 g/dL (32-36); MEAN CORPUSCULAR VOLUME 92 fL (80-99); MEAN PLATELET VOLUME 9.9 fL (9.0-12.2); MONOCYTES # (AUTO) 0.6 10^3/uL (0.0-1.0); MONOCYTES % (AUTO) 8 % (0-12); NEUTROPHILS # (AUTO) 5.1 10^3/uL (1.8-7.8); NEUTROPHILS % (AUTO) 68 % (42-75); PLATELET COUNT 222 10^3/uL (130-400); WHITE BLOOD COUNT 7.5 10^3/uL (4.3-11.0)
[2020-12-31 10:49] LABS: BUN/CREATININE RATIO 16; CALCIUM 9.4 MG/DL (8.5-10.1); CARBON DIOXIDE 32 MMOL/L (21-32); CHLORIDE 102 MMOL/L (98-107); CREATININE SERUM 0.77 MG/DL (0.60-1.30); GFR ESTIMATED > 60; GLUCOSE 90 MG/DL (70-105); POTASSIUM 3.6 MMOL/L (3.6-5.0); SODIUM 141 MMOL/L (135-145)
[2021-01-07 10:39] LABS: BASOPHILS # (AUTO) 0.1 10^3/uL (0.0-0.1); BASOPHILS % (AUTO) 1 % (0-10); EOSINOPHILS # (AUTO) 0.2 10^3/uL (0.0-0.3); EOSINOPHILS % (AUTO) 2 % (0-10); HEMATOCRIT 41 % (40-54); HEMOGLOBIN 14.2 g/dL (13.3-17.7); LYMPHOCYTES # (AUTO) 1.2 10^3/uL (1.0-4.0); LYMPHOCYTES % (AUTO) 16 % (12-44); MEAN CORPUSCULAR HEMOGLOBIN 32 pg (25-34); MEAN CORPUSCULAR HGB CONC 34 g/dL (32-36); MEAN CORPUSCULAR VOLUME 93 fL (80-99); MEAN PLATELET VOLUME 9.5 fL (9.0-12.2); MONOCYTES % (AUTO) 13 % (0-12); NEUTROPHILS % (AUTO) 64 % (42-75); PLATELET COUNT 216 10^3/uL (130-400); WHITE BLOOD COUNT 7.8 10^3/uL (4.3-11.0)
[2021-01-07 10:52] LABS: BUN/CREATININE RATIO 14; CALCIUM 9.1 MG/DL (8.5-10.1); CARBON DIOXIDE 29 MMOL/L (21-32); CHLORIDE 104 MMOL/L (98-107); CREATININE SERUM 0.86 MG/DL (0.60-1.30); GFR ESTIMATED > 60; GLUCOSE 61 MG/DL (70-105); POTASSIUM 3.5 MMOL/L (3.6-5.0); SODIUM 140 MMOL/L (135-145)
[2021-01-14 09:07] LABS: BASOPHILS # (AUTO) 0.1 10^3/uL (0.0-0.1); BASOPHILS % (AUTO) 1 % (0-10); EOSINOPHILS # (AUTO) 0.1 10^3/uL (0.0-0.3); EOSINOPHILS % (AUTO) 2 % (0-10); HEMATOCRIT 41 % (40-54); HEMOGLOBIN 14.1 g/dL (13.3-17.7); LYMPHOCYTES # (AUTO) 1.2 10^3/uL (1.0-4.0); LYMPHOCYTES % (AUTO) 23 % (12-44); MEAN CORPUSCULAR HEMOGLOBIN 32 pg (25-34); MEAN CORPUSCULAR HGB CONC 35 g/dL (32-36); MEAN CORPUSCULAR VOLUME 93 fL (80-99); MEAN PLATELET VOLUME 9.4 fL (9.0-12.2); MONOCYTES # (AUTO) 0.7 10^3/uL (0.0-1.0); MONOCYTES % (AUTO) 13 % (0-12); NEUTROPHILS # (AUTO) 3.2 10^3/uL (1.8-7.8); NEUTROPHILS % (AUTO) 61 % (42-75); PLATELET COUNT 219 10^3/uL (130-400); WHITE BLOOD COUNT 5.3 10^3/uL (4.3-11.0)
[2021-01-14 09:23] LABS: BUN/CREATININE RATIO 15; CALCIUM 8.7 MG/DL (8.5-10.1); CARBON DIOXIDE 27 MMOL/L (21-32); CHLORIDE 106 MMOL/L (98-107); CREATININE SERUM 0.87 MG/DL (0.60-1.30); GFR ESTIMATED > 60; GLUCOSE 79 MG/DL (70-105); POTASSIUM 3.5 MMOL/L (3.6-5.0); SODIUM 140 MMOL/L (135-145)
[2021-01-20 09:46] LABS: BASOPHILS % (AUTO) 1 % (0-10); EOSINOPHILS # (AUTO) 0.1 10^3/uL (0.0-0.3); EOSINOPHILS % (AUTO) 3 % (0-10); HEMATOCRIT 40 % (40-54); HEMOGLOBIN 14.1 g/dL (13.3-17.7); LYMPHOCYTES # (AUTO) 1.1 10^3/uL (1.0-4.0); LYMPHOCYTES % (AUTO) 21 % (12-44); MEAN CORPUSCULAR HEMOGLOBIN 33 pg (25-34); MEAN CORPUSCULAR HGB CONC 35 g/dL (32-36); MEAN CORPUSCULAR VOLUME 94 fL (80-99); MEAN PLATELET VOLUME 9.2 fL (9.0-12.2); MONOCYTES # (AUTO) 0.8 10^3/uL (0.0-1.0); MONOCYTES % (AUTO) 15 % (0-12); NEUTROPHILS # (AUTO) 3.1 10^3/uL (1.8-7.8); NEUTROPHILS % (AUTO) 60 % (42-75); PLATELET COUNT 235 10^3/uL (130-400); WHITE BLOOD COUNT 5.2 10^3/uL (4.3-11.0)
[2021-01-20 10:06] LABS: ALBUMIN 4.2 GM/DL (3.2-4.5); BILIRUBIN,TOTAL 0.9 MG/DL (0.1-1.0); CALCIUM 9.1 MG/DL (8.5-10.1); CREATININE SERUM 0.83 MG/DL (0.60-1.30); POTASSIUM 3.7 MMOL/L (3.6-5.0); TOTAL PROTEIN 6.9 GM/DL (6.4-8.2)
[~2021-01-26] VITALS: Ht 188 cm; Wt 108.0 kg
[~2021-01-26] MED LIST changes: +ACETAMINOPHEN 325 MG TAB (TYLENOL) CANCER CTR PO PRN; +CYCLOPHOSPHAMIDE INJECTION 1,000 MG, CYCLOPHOSPHAMIDE INJECTION 500 MG in NS (IVPB) CAN... IV SCH; +FAMOTIDINE 20MG/2ML IV (CANCER CTR) ONE; +FOSAPREPITANT (CANCER CENTER) 150 MG in NS (IVPB) CANCER CENTER ONLY 150 ML IV SCH; +METHOTREXATE IV SCH; +NS IV 1000 ML (CANCER CTR) IV SCH; +NS IV SCH; +PEGFILGRASTIM-BMEZ 6 MG/0.6 ML ZIEXTENZO SQ SCH; +RITUXIMAB ABBS IV SCH; +VINCRISTINE SULFATE IV SCH; +diphenhydrAMINE 25 MG TAB (BENADRYL) CANCER CENTER PO ONE; +diphenhydrAMINE 50 MG/ML INJ (CANCER CENTER) IV PRN; +methylPREDNISolone 125 MG/2 ML (SOLU-MEDROL) CANCER CTR ONE; +vinCRIStine SULFATE 2 MG in NS (IVPB) CANCER CENTER 50 ML IV SCH
== END | disposition home or self-care (01) ==
LOC: ONC 10-28 09:20
PROVIDERS: ATTEND Internal Medicine Hematology & Oncology
DX: Z51.11 Encounter for antineoplastic chemotherapy (principal); C83.39 Diffuse large B-cell lymphoma, extranodal and solid organ sites
CPT/HCPCS: 80053; 80074; 83615; 85025; G0463; 36591; 77280; 77290; 77295; 77300; 77334; 77402; 77470; 80048; 82945; 84157; 88112; 89051; 96367; 96372; 96375; 96376; 96411; 96413; 96415; 96417; 96450; 99204; 99213; 99214

== ENCOUNTER 2021-02-13 09:48 | Outpatient (RCR) | payer BC ==
[2021-02-09 10:53] LABS: BASOPHILS % (AUTO) 1 % (0-10); EOSINOPHILS # (AUTO) 0.2 10^3/uL (0.0-0.3); EOSINOPHILS % (AUTO) 5 % (0-10); HEMATOCRIT 41 % (40-54); HEMOGLOBIN 14.3 g/dL (13.3-17.7); LYMPHOCYTES # (AUTO) 0.9 10^3/uL (1.0-4.0); LYMPHOCYTES % (AUTO) 21 % (12-44); MEAN CORPUSCULAR HEMOGLOBIN 32 pg (25-34); MEAN CORPUSCULAR HGB CONC 35 g/dL (32-36); MEAN CORPUSCULAR VOLUME 93 fL (80-99); MEAN PLATELET VOLUME 9.4 fL (9.0-12.2); MONOCYTES # (AUTO) 0.5 10^3/uL (0.0-1.0); MONOCYTES % (AUTO) 10 % (0-12); NEUTROPHILS # (AUTO) 2.8 10^3/uL (1.8-7.8); NEUTROPHILS % (AUTO) 63 % (42-75); PLATELET COUNT 224 10^3/uL (130-400); WHITE BLOOD COUNT 4.5 10^3/uL (4.3-11.0)
[2021-02-09 11:10] LABS: ALBUMIN 4.1 GM/DL (3.2-4.5); CALCIUM 8.9 MG/DL (8.5-10.1); CREATININE SERUM 0.78 MG/DL (0.60-1.30); POTASSIUM 3.9 MMOL/L (3.6-5.0); TOTAL PROTEIN 6.8 GM/DL (6.4-8.2)
[~2021-02-13 09:48] MED LIST changes: -ACETAMINOPHEN 325 MG TAB (TYLENOL) CANCER CTR PO PRN; -CYCLOPHOSPHAMIDE INJECTION 1,000 MG, CYCLOPHOSPHAMIDE INJECTION 500 MG in NS (IVPB) CAN... IV SCH; -FAMOTIDINE 20MG/2ML IV (CANCER CTR) ONE; -FOSAPREPITANT (CANCER CENTER) 150 MG in NS (IVPB) CANCER CENTER ONLY 150 ML IV SCH; -METHOTREXATE IV SCH; -NS IV 1000 ML (CANCER CTR) IV SCH; -NS IV SCH; -PEGFILGRASTIM-BMEZ 6 MG/0.6 ML ZIEXTENZO SQ SCH; -RITUXIMAB ABBS IV SCH; -VINCRISTINE SULFATE IV SCH; -diphenhydrAMINE 25 MG TAB (BENADRYL) CANCER CENTER PO ONE; -diphenhydrAMINE 50 MG/ML INJ (CANCER CENTER) IV PRN; -methylPREDNISolone 125 MG/2 ML (SOLU-MEDROL) CANCER CTR ONE; -vinCRIStine SULFATE 2 MG in NS (IVPB) CANCER CENTER 50 ML IV SCH
== END 2021-04-28 | disposition home or self-care (01) ==
LOC: ONC 09:48
PROVIDERS: ATTEND Internal Medicine Hematology & Oncology
DX: Z51.0 Encounter for antineoplastic radiation therapy (principal); C85.80 Other specified types of non-Hodgkin lymphoma, unspecified site; C83.36 Diffuse large B-cell lymphoma, intrapelvic lymph nodes; E04.1 Nontoxic single thyroid nodule
CPT/HCPCS: 36591; 77336; 77402; 80053; 83615; 85025

== ENCOUNTER → 2021-04-30 | Outpatient (CLI) | payer BC ==
--- NOTE | 2021-04-30 09:39 | Diagnostic Imaging Report ---
PROCEDURE: US Thyroid. TECHNIQUE: Multiple real-time grayscale images were obtained of the thyroid in various projections. INDICATION: Left thyroid nodule, followup. Correlation is made with prior thyroid ultrasound from 11/07/2020. A right lobe of the thyroid measures 5.6 x 1.5 x 2.2 cm and left lobe measures 5.9 x 1.8 x 1.8 cm. Isthmus is 3 mm in thickness. The isoechoic, circumscribed mass in the mid to lower pole of the left lobe thyroid is again noted. Overall measurements are very similar to prior exam, measuring 1.3 x 1.2 x 1.2 cm. No internal microcalcifications are seen. No other masses are detected. IMPRESSION: Stable left lobe thyroid nodule when compared to examination from 11/07/2020. Dictated by: Dictated on workstation # [id number]
== END ==
LOC: RAD 07:52
PROVIDERS: ATTEND Nurse Practitioner Adult Health
DX: E04.1 Nontoxic single thyroid nodule (principal)
CPT/HCPCS: 76536

== ENCOUNTER 2021-05-04 10:14 | Outpatient (RCR) | payer BC ==
[2021-05-04 10:38] LABS: BASOPHILS % (AUTO) 0 % (0-10); EOSINOPHILS # (AUTO) 0.1 10^3/uL (0.0-0.3); EOSINOPHILS % (AUTO) 2 % (0-10); HEMATOCRIT 42 % (40-54); HEMOGLOBIN 15.2 g/dL (13.3-17.7); LYMPHOCYTES # (AUTO) 1.2 10^3/uL (1.0-4.0); LYMPHOCYTES % (AUTO) 24 % (12-44); MEAN CORPUSCULAR HEMOGLOBIN 31 pg (25-34); MEAN CORPUSCULAR HGB CONC 36 g/dL (32-36); MEAN CORPUSCULAR VOLUME 87 fL (80-99); MEAN PLATELET VOLUME 9.4 fL (9.0-12.2); MONOCYTES # (AUTO) 0.4 10^3/uL (0.0-1.0); MONOCYTES % (AUTO) 8 % (0-12); NEUTROPHILS # (AUTO) 3.2 10^3/uL (1.8-7.8); NEUTROPHILS % (AUTO) 65 % (42-75); PLATELET COUNT 217 10^3/uL (130-400); WHITE BLOOD COUNT 4.9 10^3/uL (4.3-11.0)
[2021-05-04 10:55] LABS: ALBUMIN 4.2 GM/DL (3.2-4.5); BILIRUBIN,TOTAL 1.2 MG/DL (0.1-1.0); CALCIUM 8.9 MG/DL (8.5-10.1); CREATININE SERUM 0.73 MG/DL (0.60-1.30); POTASSIUM 3.8 MMOL/L (3.6-5.0); TOTAL PROTEIN 6.7 GM/DL (6.4-8.2)
== END 2021-06-26 | disposition home or self-care (01) ==
LOC: ONC 10:14
PROVIDERS: ATTEND Internal Medicine Hematology & Oncology
DX: C85.80 Other specified types of non-Hodgkin lymphoma, unspecified site (principal); C83.36 Diffuse large B-cell lymphoma, intrapelvic lymph nodes; E04.1 Nontoxic single thyroid nodule
CPT/HCPCS: 80053; 83615; 85025; G0463; 36591

== ENCOUNTER → 2021-06-16 | Outpatient (CLI) | payer BC ==
--- NOTE | 2021-06-16 14:16 | Diagnostic Imaging Report ---
INDICATION: Diffuse large B-cell lymphoma. This study is performed for restaging. TECHNIQUE: The serum blood glucose level at the time of injection was 93 mg/dL. The patient was administered 13.1 mCi of F-18 FDG intravenously in the right antecubital location and PET imaging was performed from the top of the skull to the mid thighs. A noncontrast CT was performed for attenuation correction and anatomic correlation. COMPARISON: Prior PET/CT study from 11/04/2020. FINDINGS: There is symmetric activity throughout the brain. The soft tissues of the neck are stable. The hypermetabolic mass in the left lobe of the thyroid is again noted. No mediastinal or hilar hypermetabolism is identified. No pulmonary parenchymal hypermetabolism is identified. Physiologic activity throughout the GI and tracts of the abdomen and pelvis is noted. No suspicious hypermetabolism is identified. IMPRESSION: Stable PET/CT study when compared to the exam from 11/04/2020. Hypermetabolic mass in the left lobe of the thyroid is again noted. No new region of hypermetabolism is detected. Dictated by: Dictated on workstation # [id number]
== END ==
LOC: RAD 08:15
PROVIDERS: ATTEND Internal Medicine Hematology & Oncology
DX: C83.30 Diffuse large B-cell lymphoma, unspecified site (principal); E07.9 Disorder of thyroid, unspecified
CPT/HCPCS: 78815; A9552

== ENCOUNTER → 2021-11-02 | Outpatient (CLI) | payer BC, OTHER ==
--- NOTE | 2021-11-02 17:31 | Diagnostic Imaging Report ---
PROCEDURE: US Thyroid. TECHNIQUE: Multiple real-time grayscale images were obtained of the thyroid in various projections. INDICATION: Thyroid nodule COMPARISON: 04/30/2021 and 11/07/2020 FINDINGS: The right lobe of thyroid gland measures 5.5 x 1.9 x 1.9 cm. Maintains a homogeneous echotexture without discrete nodule. The left lobe of thyroid gland measures 4.8 x 1.8 x 1.9 cm. A round circumscribed hypoechoic solid nodule measuring 1.2 x 1.1 x 1.0 cm is again noted within the mid left thyroid lobe. This is not significantly changed from the prior examinations. No new left thyroid nodule. The isthmus is unremarkable. IMPRESSION: Stable 1.2 cm Ti RADS 4 nodule within the left thyroid lobe. Recommend a followup ultrasound of thyroid gland in one year to ensure stability. No new thyroid nodules. Dictated by: Dictated on workstation # [id number]
== END ==
LOC: RAD 12:15
PROVIDERS: ATTEND Internal Medicine Hematology & Oncology
DX: E04.1 Nontoxic single thyroid nodule (principal); C83.30 Diffuse large B-cell lymphoma, unspecified site
CPT/HCPCS: 76536